=== PATIENT | female | born 1990 | race Caucasian/White ===

== ENCOUNTER 2018-03-18 19:25 | Emergency (ER) | payer BC ==
[~2018-03-18] VITALS: Ht 157.5 cm; Wt 43.0 kg
[2018-03-18 20:07] VITALS: BP 85/61; PULSE 125; RESP 18; TEMP 99.4; O2SAT 99
--- NOTE | 2018-03-18 20:24 | PD ---
HPI Chief Complaint: GI Complaint Time Seen by Provider: 20:14 Travel History International Travel<30 days: No Contact w/Intl Traveler<30days: No Traveled to known affect area: No History of Present Illness HPI 27yo F with no PMH presents to the ED with c/o feeling chills, generalized aches , nonbloody diarrhea about an hour after she ate lunch at 1:30pm. Said she did eat seafood but it was cooked. Denies any fever but felt warm and took ibuprofen. +Nausea. Denies any chest pain, sob, vomiting, abdominal pain, focal weakness or numbness. PFSH Past Medical History ?: Not LMP: 4 WEEKS AGO Social History Tobacco Use: No Allergies-Medications (Allergen,Severity, Reaction): Coded Allergies: codeine (Verified Allergy, Unknown, VOMITING, 03/18/18) Review of Systems Except as stated in HPI: all other systems reviewed are Neg Physical Exam Narrative GENERAL: 27yo F in mild distress. SKIN: Focused skin assessment warm/dry. HEAD: Atraumatic. Normocephalic. EYES: Pupils equal and round. No scleral icterus. No injection or drainage. ENT: No nasal bleeding or discharge. Mucous membranes pink and moist. NECK: Trachea midline. No JVD. CARDIOVASCULAR: Regular rate and rhythm. No murmur appreciated. RESPIRATORY: No accessory muscle use. Clear to auscultation. Breath sounds equal bilaterally. GASTROINTESTINAL: Abdomen soft, non-tender, nondistended. MUSCULOSKELETAL: No obvious deformities. No clubbing. No cyanosis. No edema. NEUROLOGICAL: Awake and alert. No obvious cranial nerve deficits. Motor grossly within normal limits in all extremities. Sensation intact. Normal speech. PSYCHIATRIC: Appropriate mood and affect; insight and judgment normal. Data Data Last Documented VS Vital Signs Date Time Temp Pulse Resp B/P (MAP) Pulse Ox O2 Delivery O2 Flow Rate FiO2 03/18/18 23:15 115 16 113/58 (76) 99 Room Air 03/18/18 22:29 101.9 Orders Orders Complete Blood Count With Diff (03/18/18 20:19) Basic Metabolic Panel (Bmp) (03/18/18 20:19) Magnesium (Mg) (03/18/18 20:19) Lactic Acid Sepsis Protocol (03/18/18 20:19) Prothrombin Time / Inr (Pt) (03/18/18 20:19) Act Partial Throm Time (Ptt) (03/18/18 20:19) Influenzae A/B Antigen (03/18/18 20:19) Urinalysis - C+S If Indicated (03/18/18 20:19) Ed Urine Pregnancytest Poc (03/18/18 20:19) Sodium Chlor 0.9% 1000 Ml Inj (Ns 1000 M (03/18/18 20:30) Ondansetron Odt (Zofran Odt) (03/18/18 20:30) Sodium Chlor 0.9% 1000 Ml Inj (Ns 1000 M (03/18/18 22:00) Sodium Chlor 0.9% 1000 Ml Inj (Ns 1000 M (03/18/18 22:00) Blood Culture (03/18/18 22:15) Vancomycin Inj (Vancomycin Inj) (03/18/18 22:15) Piperacil-Tazo 3.375 Gm Premix (Zosyn 3. (03/18/18 22:15) Acetaminophen (Tylenol) (03/18/18 22:15) Admit Order (Ed Use Only) (03/18/18 23:26) Labs Laboratory Tests Test 03/18/18 20:45 03/18/18 21:30 03/18/18 22:52 White Blood Count 8.2 TH/MM3 Red Blood Count 4.82 MIL/MM3 Hemoglobin 14.8 GM/DL Hematocrit 43.4 % Mean Corpuscular Volume 90.1 FL Mean Corpuscular Hemoglobin 30.6 PG Mean Corpuscular Hemoglobin Concent 34.0 % Red Cell Distribution Width 13.0 % Platelet Count 238 TH/MM3 Mean Platelet Volume 7.9 FL Neutrophils (%) (Auto) 87.9 % Lymphocytes (%) (Auto) 8.6 % Monocytes (%) (Auto) 3.1 % Eosinophils (%) (Auto) 0.3 % Basophils (%) (Auto) 0.1 % Neutrophils # (Auto) 7.2 TH/MM3 Lymphocytes # (Auto) 0.7 TH/MM3 Monocytes # (Auto) 0.3 TH/MM3 Eosinophils # (Auto) 0.0 TH/MM3 Basophils # (Auto) 0.0 TH/MM3 CBC Comment DIFF FINAL Differential Comment Prothrombin Time 10.2 SEC Prothromb Time International Ratio 1.0 RATIO Activated Partial Thromboplast Time 25.2 SEC Lactic Acid Level 3.1 mmol/L Urine Color YELLOW Urine Turbidity HAZY Urine pH 8.0 Urine Specific [place] 1.012 Urine Protein NEG mg/dL Urine Glucose (UA) NEG mg/dL Urine Ketones NEG mg/dL Urine Occult Blood NEG Urine Nitrite NEG Urine Bilirubin NEG Urine Urobilinogen LESS THAN 2.0 MG/DL Urine Leukocyte Esterase NEG Urine RBC LESS THAN 1 /hpf Urine WBC 3 /hpf Urine Squamous Epithelial Cells <1 /hpf Urine Amorphous Sediment RARE Urine Mucus FEW /lpf Microscopic Urinalysis Comment CULT NOT INDICATED Blood Urea Nitrogen 11 MG/DL Creatinine 0.78 MG/DL Random Glucose 69 MG/DL Calcium Level 9.0 MG/DL Magnesium Level 1.8 MG/DL Sodium Level 134 MEQ/L Potassium Level 4.0 MEQ/L Chloride Level 104 MEQ/L Carbon Dioxide Level 20.8 MEQ/L Anion Gap 9 MEQ/L Estimat Glomerular Filtration Rate 88 ML/MIN MDM Medical Decision Making Medical Screen Exam Complete: Yes Emergency Medical Condition: Yes Differential Diagnosis Dehydration vs. sepsis vs. food poisoning Narrative Course 27yo F with sudden onset of chills/bodyaches, diarrhea x 2 today. Pt is tachycardic and hypotensive on arrival. Repeat blood pressure improved. Pt given NS IVF x1 and HR is now in the 140s. Will give 2 more liter of NS IVF and reevaluate. Labs reviewed, no leukocytosis at 8.2. Neutrophil 87.9%. Glucose low at 69, pt given juice. Lactic acid is elevated at 3.1. Temp was 99.4F on arrival but pt just took ibuprofen and pt feels warm to me. Repeat tem pis 101.9F. Pt given acetaminophen. Blood cultures are drawn and empirically given vancomycin and zosyn. UA negative. Influenza negative. Discussed with Dr. Hubbard and accepted to her service. Sepsis Criteria SIRS Criteria (2 or more): Temp > 100.9 or < 96.8, Heart rate over 90 Severe Sepsis (+one): Lactate >2 Diagnosis Primary Impression: Sepsis Qualified Codes: A41.9 - Sepsis, unspecified organism Admitting Information Admitting Physician Requests: Admit Lelia Shepherd DO March 18, 2018 20:24
[2018-03-18] MEDS ORDERED: SODIUM CHLOR 0.9% 1000 ML INJ 1,000 ML IV ONE ×3 (20:30→22:00)
[2018-03-18] MEDS ORDERED: ONDANSETRON ODT 4 MG TAB PO ONE (20:30)
[2018-03-18 21:23] VITALS: BP 117/71; PULSE 115; RESP 20
[2018-03-18 21:34] LABS: AUTOMATED NEUTROPHIL # 7.2 TH/MM3 (1.8-7.7); BASOPHIL % 0.1 % (0.0-2.0); EOSINOPHIL % 0.3 % (0.0-4.0); HEMATOCRIT 43.4 % (35.0-46.0); HEMOGLOBIN 14.8 GM/DL (11.6-15.3); LYMPH % 8.6 % (9.0-44.0); LYMPHOCYTE # 0.7 TH/MM3 (1.0-4.8); MEAN CELL VOLUME 90.1 FL (80.0-100.0); MEAN CORPUSCULAR HEMOGLOBIN 30.6 PG (27.0-34.0); MEAN PLATELET VOLUME 7.9 FL (7.0-11.0); MONO % 3.1 % (0.0-8.0); MONOCYTE # 0.3 TH/MM3 (0-0.9); NEUT % 87.9 % (16.0-70.0); PLATELET COUNT 238 TH/MM3 (150-450); RED BLOOD COUNT 4.82 MIL/MM3 (4.00-5.30); WHITE BLOOD COUNT 8.2 TH/MM3 (4.0-11.0)
[2018-03-18 21:36] LABS: LACTIC ACID SEPSIS PROTOCOL 3.1 mmol/L (0.4-2.0)
[2018-03-18 21:40] LABS: PROTHROMBIN TIME - PATIENT 10.2 SEC (9.8-11.6)
[2018-03-18 22:01] LABS: AMORPHOUS SEDIMENT, URINE RARE; BILIRUBIN, URINE NEG (NEG); BLOOD, URINE NEG (NEG); GLUCOSE,URINE NEG (NEG); KETONE, URINE NEG (NEG); MUCUS URINE FEW /lpf (OCC); NITRITE,URINE NEG (NEG); SQUAMOUS EPITHELIAL CELL URINE <1 /hpf (0-5); URINE COLOR YELLOW (YELLW/STRAW); URINE LEUKOCYTE ESTERASE NEG (NEG)
[2018-03-18 22:03] LABS: BICARBONATE 20.8 MEQ/L (21.0-32.0); CREATININE 0.78 MG/DL (0.50-1.00)
[2018-03-18] MEDS ORDERED: VANCOMYCIN INJ 650 MG in SODIUM CHLOR 0.9% 250 ML INJ 250 ML IV ONE (22:15)
[2018-03-18] MEDS ORDERED: ACETAMINOPHEN 325 MG TAB PO ONE (22:15)
[2018-03-18] MEDS ORDERED: PIPERACIL-TAZO 3.375 GM PREMIX 50 ML IV ONE (22:15)
[2018-03-18 22:29] VITALS: PULSE 142; TEMP 101.9
[2018-03-18 23:15] VITALS: BP 113/58; PULSE 115; RESP 16; O2SAT 99
[2018-03-18 23:27] LABS: MAGNESIUM 1.8 MG/DL (1.5-2.5)
[2018-03-19 01:18] VITALS: PULSE 119; RESP 18; O2SAT 99
--- NOTE | 2018-03-19 01:26 | HHI.DCPOC ---
Discharge Care Plan Goals to Promote Your Health * To prevent worsening of your condition and complications follow all discharge instructions * To maintain your health at the optimal level follow all discharge instructions Directions to Meet Your Goals Take your medications as prescribed Follow your dietary instruction Follow activity as directed Keep your appointments as scheduled Take your immunizations and boosters as scheduled If your symptoms worsen call your PCP, if no PCP go to Urgent Care Center or Emergency Room Smoking is Dangerous to Your Health. Avoid second hand smoke Call the 24-hour hour crisis hotline for domestic abuse at Iesha Hubbard MD March 19, 2018 01:26
--- NOTE | 2018-03-19 01:34 | HHI.HP ---
HPI Service [facility] Primary Care Physician Unknown Admission Diagnosis Sepsis Diagnoses: Travel History International Travel<30 Days: No Contact w/Intl Traveler <30 Da: No Traveled to Known Affected Are: No History of Present Illness 27-year-old female with no significant past medical history presents the emergency department for the evaluation of body aches, fever/chills and diarrhea. The patient is here on vacation from [place] and reports that she ate at [employer]. Approximately 1 hour after eating she started to have body aches with accompanying fevers and chills. She reports that she "just did not feel right." She had 2 episodes of diarrhea. Denies any abdominal pain or nausea/vomiting. No cough or rhinorrhea. No chest pain or shortness of breath. On arrival to the emergency department the patient was tachycardic to 125 with a blood pressure of 85/61. She also had an elevated lactic acid at 3.1. Review of Systems Except as stated in HPI: all other systems reviewed are Neg Past Family Social History Past Medical History None Past Surgical History Tonsillectomy Reported Medications None Allergies: Coded Allergies: codeine (Verified Allergy, Unknown, VOMITING, 03/18/18) Family History Father of [place] at age 51 Social History Occasional alcohol. Denies tobacco and illicit drugs Physical Exam Vital Signs Vital Signs Date Time Temp Pulse Resp B/P (MAP) Pulse Ox O2 Delivery O2 Flow Rate FiO2 03/19/18 01:18 119 18 99 Room Air 03/18/18 23:15 115 16 113/58 (76) 99 Room Air 03/18/18 22:29 101.9 142 03/18/18 21:23 115 20 117/71 (86) 03/18/18 20:07 99.4 125 18 85/61 (69) 99 Physical Exam GENERAL: female sitting up in bed, generally well appearing, in no distress SKIN: No rashes, ecchymoses or lesions. Cool and dry. HEAD: Atraumatic. Normocephalic. No temporal or scalp tenderness. EYES: Pupils equal round and reactive. Extraocular motions intact. No scleral icterus. No injection or drainage. ENT: Nose without bleeding, purulent drainage or septal hematoma. Throat without erythema, tonsillar hypertrophy or exudate. Uvula midline. Airway patent. NECK: Trachea midline. No JVD or lymphadenopathy. Supple, nontender, no meningeal signs. CARDIOVASCULAR: Regular rate and rhythm without murmurs, gallops, or rubs. RESPIRATORY: Clear to auscultation. Breath sounds equal bilaterally. No wheezes , rales, or rhonchi. GASTROINTESTINAL: Abdomen soft, non-tender, nondistended. No hepato-splenomegaly , or palpable masses. No guarding. MUSCULOSKELETAL: Extremities without clubbing, cyanosis, or edema. No joint tenderness, effusion, or edema noted. No calf tenderness. NEUROLOGICAL: Awake and alert. Cranial nerves II through XII intact. Motor and sensory grossly within normal limits. Normal speech. Laboratory Laboratory Tests Test 03/18/18 20:45 03/18/18 21:30 03/18/18 22:52 03/19/18 00:28 White Blood Count 8.2 Red Blood Count 4.82 Hemoglobin 14.8 Hematocrit 43.4 Mean Corpuscular Volume 90.1 Mean Corpuscular Hemoglobin 30.6 Mean Corpuscular Hemoglobin Concent 34.0 Red Cell Distribution Width 13.0 Platelet Count 238 Mean Platelet Volume 7.9 Neutrophils (%) (Auto) 87.9 Lymphocytes (%) (Auto) 8.6 Monocytes (%) (Auto) 3.1 Eosinophils (%) (Auto) 0.3 Basophils (%) (Auto) 0.1 Neutrophils # (Auto) 7.2 Lymphocytes # (Auto) 0.7 Monocytes # (Auto) 0.3 Eosinophils # (Auto) 0.0 Basophils # (Auto) 0.0 CBC Comment DIFF FINAL Differential Comment Prothrombin Time 10.2 Prothromb Time International Ratio 1.0 Activated Partial Thromboplast Time 25.2 Lactic Acid Level 3.1 2.2 Urine Color YELLOW Urine Turbidity HAZY Urine pH 8.0 Urine Specific [place] 1.012 Urine Protein NEG Urine Glucose (UA) NEG Urine Ketones NEG Urine Occult Blood NEG Urine Nitrite NEG Urine Bilirubin NEG Urine Urobilinogen LESS THAN 2.0 Urine Leukocyte Esterase NEG Urine RBC LESS THAN 1 Urine WBC 3 Urine Squamous Epithelial Cells <1 Urine Amorphous Sediment RARE Urine Mucus FEW Microscopic Urinalysis Comment CULT NOT INDICATED Blood Urea Nitrogen 11 Creatinine 0.78 Random Glucose 69 Calcium Level 9.0 Magnesium Level 1.8 Sodium Level 134 Potassium Level 4.0 Chloride Level 104 Carbon Dioxide Level 20.8 Anion Gap 9 Estimat Glomerular Filtration Rate 88 Date/Time Source Procedure Growth Status 03/18/18 22:50 Blood Peripheral Aerobic Blood Culture Pending Received 03/18/18 22:50 Blood Peripheral Anaerobic Blood Culture Pending Received 03/18/18 21:30 Nasal Aspirate Influenza Types A,B Antigen (ONEYDA) - Final NEGATIVE FOR FLU A AND B ANTIGEN.... Complete Result Diagram: 03/18/18204403/18/182251 Caprini VTE Risk Assessment Caprini VTE Risk Assessment: No/Low Risk (score <= 1) Caprini Risk Assessment Model Point Value = 1 Point Value = 2 Point Value = 3 Point Value = 5 Age 41-60 Minor surgery BMI > 25 kg/m2 Swollen legs Varicose veins or History of unexplained or recurrent spontaneous Oral contraceptives or hormone replacement Sepsis (< 1 month) Serious lung disease, including pneumonia (< 1 month) Abnormal pulmonary function Acute myocardial infarction Congestive heart failure (< 1 month) History of inflammatory bowel disease Medical patient at bed rest Age 61-74 Arthroscopic surgery Major open surgery (> 45 min) Laparoscopic surgery (> 45 min) Malignancy Confined to bed (> 72 hours) Immobilizing plaster cast Central venous access Age >= 75 History of VTE Family history of VTE Factor V Leiden Prothrombin [id number] Lupus anticoagulant Anticardiolipin antibodies Elevated serum homocysteine Heparin-induced thrombocytopenia Other congenital or acquired thrombophilia Stroke (< 1 month) Elective arthroplasty Hip, pelvis, or leg fracture Acute spinal cord injury (< 1 month) Prophylaxis Regimen Total Risk Factor Score Risk Level Prophylaxis Regimen 0-1 Low Early ambulation 2 Moderate Order ONE of the following: *Sequential Compression Device (SCD) *Heparin 5000 units SQ BID 3-4 Higher Order ONE of the following medications: *Heparin 5000 units SQ TID *Enoxaparin/Lovenox 40 mg SQ daily (WT < 150 kg, CrCl > 30 mL/min) *Enoxaparin/Lovenox 30 mg SQ daily (WT < 150 kg, CrCl > 10-29 mL/min) *Enoxaparin/Lovenox 30 mg SQ BID (WT < 150 kg, CrCl > 30 mL/min) AND/OR *Sequential Compression Device (SCD) 5 or more Highest Order ONE of the following medications: *Heparin 5000 units SQ TID (Preferred with Epidurals) *Enoxaparin/Lovenox 40 mg SQ daily (WT < 150 kg, CrCl > 30 mL/min) *Enoxaparin/Lovenox 30 mg SQ daily (WT < 150 kg, CrCl > 10-29 mL/min) *Enoxaparin/Lovenox 30 mg SQ BID (WT < 150 kg, CrCl > 30 mL/min) AND *Sequential Compression Device (SCD) Assessment and Plan Assessment and Plan Assessment/plan: 1. Gastroenteritis Patient with fever/chills and diarrhea Likely viral in origin Vital signs improved with IV fluid hydration Lactic acid improved from 3.1 No leukocytosis Flu negative Urine negative Blood cultures pending Patient with significant improvement in her symptoms since her arrival in the emergency department. Will be discharged to home with instructions to return to the ED if symptoms persist or worsen. Iesha Hubbard MD March 19, 2018 01:34
== END 2018-03-19 02:22 | disposition home or self-care (01) ==
LOC: NEPD 19:25 → UNDOADMIN 23:28 → NEDA 23:28 → NEPD 03-19 02:22
DX: A41.9 Sepsis, unspecified organism (principal)
CPT/HCPCS: 80048; 81001; 83605; 83735; 84703; 85025; 85610; 85730; 87040; 87804; 96361; 96365; 99285; J2543; J3370; J7030; J7050